=== PATIENT | female | born 1950 | race Caucasian/White ===

== ENCOUNTER → 2018-11-07 | Outpatient (CLI) | payer MEDICARE, OTHER ==
[2018-11-07 07:17] LABS: ABSOLUTE EOSINOPHILS 0.2 thou/uL (0.0-0.7); ABSOLUTE LYMPHOCYTES 2.9 thou/uL (0.8-5.3); ABSOLUTE MONOCYTES 0.5 thou/uL (0.0-1.2); BASOPHILS 0.5 %; EOSINOPHILS 2.6 %; HEMOGLOBIN 13.1 gm/dL (12.0-15.0); LYMPHOCYTES 43.3 %; MCH 28.3 pg (26.0-34.0); MCHC 32.7 g/dL (28.0-37.0); MCV 86.6 fL (80.0-100.0); MPV 9.1 fl. (7.2-11.1); NUCLEATED RBCS 0 /100WBC; PLATELET COUNT* 326 thou/uL (150-400); POLYS 45.6 %; RBC 4.62 mil/uL (4.20-5.00); RDW-CV 14.2 % (10.5-14.5); WBC 6.6 thou/uL (4.0-11.0)
[2018-11-07 07:32] LABS: ALBUMIN 3.6 g/dL (3.4-5.0); CALCIUM 9.3 mg/dL (8.5-10.1); CREATININE 0.9 mg/dL (0.6-1.3); POTASSIUM 4.7 mmol/L (3.5-5.1); TOTAL BILIRUBIN 0.2 mg/dL (<0.1-1.0); TOTAL PROTEIN 7.2 g/dL (6.4-8.2)
[2018-11-07 08:21] LABS: ESR (SEDRATE) 15 mm/hr (0-30)
== END ==
LOC: M.CT 10-31 14:35
PROVIDERS: Psychiatry & Neurology Neuromuscular Medicine
DX: M47.812 Spondylosis without myelopathy or radiculopathy, cervical region (principal); M48.02 Spinal stenosis, cervical region; R42 Dizziness and giddiness; R41.3 Other amnesia

== ENCOUNTER 2018-12-03 22:24 | Emergency (ER) | payer MEDICARE, OTHER ==
[~2018-12-03] VITALS: Ht 165.1 cm; Wt 81.7 kg
[2018-12-03 22:52] LABS: ABSOLUTE EOSINOPHILS 0.2 thou/uL (0.0-0.7); ABSOLUTE MONOCYTES 0.6 thou/uL (0.0-1.2); ABSOLUTE NEUTROPHILS 3.4 thou/uL (1.6-8.1); BASOPHILS 0.5 %; EOSINOPHILS 2.2 %; HEMATOCRIT 37.7 % (37.0-47.0); HEMOGLOBIN 12.4 gm/dL (12.0-15.0); LYMPHOCYTES 41.6 %; MCH 28.4 pg (26.0-34.0); MCV 86.2 fL (80.0-100.0); MONOCYTES 7.9 %; MPV 9.2 fl. (7.2-11.1); NUCLEATED RBCS 0 /100WBC; PLATELET COUNT* 260 thou/uL (150-400); POLYS 47.8 %; RBC 4.37 mil/uL (4.20-5.00); RDW-CV 13.7 % (10.5-14.5); WBC 7.2 thou/uL (4.0-11.0)
[2018-12-03 23:02] LABS: ANION GAP 14 mmol/L (7-16); BUN 16 mg/dL (7-18); CALCIUM 9.4 mg/dL (8.5-10.1); CHLORIDE 107 mmol/L (98-107); CO2 23 mmol/L (21-32); CREATININE 1.1 mg/dL (0.6-1.3); GLUCOSE 132 mg/dL (70-99); POTASSIUM 4.6 mmol/L (3.5-5.1); SODIUM 144 mmol/L (136-145)
[2018-12-03 23:06] LABS: PROTIME 9.8 Seconds (9.20-11.50)
[2018-12-03 23:16] LABS: ALBUMIN 3.5 g/dL (3.4-5.0); ALKALINE PHOSPHATASE 89 U/L (46-116); CK-MB MASS 0.5 ng/mL (<0.5-3.6); LIPASE 78 U/L (73-393); MAGNESIUM 1.2 mg/dL (1.8-2.4); NT-PRO BRAIN NAT PEPTIDE 48 pg/mL (<300); SGOT 13 U/L (15-37); SGPT 16 U/L (30-65); TOTAL BILIRUBIN 0.2 mg/dL (<0.1-1.0); TOTAL PROTEIN 6.8 g/dL (6.4-8.2); TROPONIN-I LEVEL <0.06 ng/mL (<0.06)
[2018-12-04 01:07] VITALS: BP 122/54
--- NOTE | 2018-12-05 10:50 | EKG ---
[place] [address] ELECTROCARDIOGRAM REPORT Name: CARLIN BENTON [id number] Admission: 12/03/18 Attend Phys: Discharge: 12/04/18 Date of : 48 Report #: [id number] THIS REPORT FOR: //name// [facility] ED Test Date: 2018-12-03 Test Time: 22:33:22 Pat Name: CARLIN BENTON Department: Room: Gender: F [employer]: : 1950 Requested By: Paolo Beltran Order Number: [id number] MD: Bhavin Egan Measurements Intervals [place] Rate: 70 P: -14 [place]: 170 QRS: -30 QRSD: 89 T: 3 QT: 375 QTc: 405 Interpretive Statements Sinus rhythm Inferior infarct, old Consider anterior infarct No previous ECG available for comparison Electronically Signed On 12-05-2018 10:50:05 CDT by Bhavin Egan [email or web address] <ELECTRONICALLY SIGNED> By: Bhavin Egan MD, [facility] 12/05/18 1050 [id number] [id number] Bhavin Egan MD, FACC /EPI
== END 2018-12-04 01:15 | disposition home or self-care (01) ==
LOC: M.ERS 22:24
PROVIDERS: Family Medicine
DX: M79.602 Pain in left arm (principal); M19.90 Unspecified osteoarthritis, unspecified site; E11.9 Type 2 diabetes mellitus without complications; M54.9 Dorsalgia, unspecified; G89.29 Other chronic pain; E78.00 Pure hypercholesterolemia, unspecified; I10 Essential (primary) hypertension; Z88.8 Allergy status to other drugs, medicaments and biological substances

== ENCOUNTER 2019-07-25 16:22 | Emergency (ER) | payer MEDICARE, OTHER ==
[~2019-07-25] VITALS: Ht 165.1 cm; Wt 72.6 kg
[2019-07-25] MEDS ORDERED: TOPROL XL100 MG PO (16:37)
[2019-07-25] MEDS ORDERED: GLUCOPHAGE1000 MG PO (16:37)
[2019-07-25] MEDS ORDERED: PERCOCET 10-321 EAC1 PO (16:37)
[2019-07-25 16:47] LABS: ABSOLUTE EOSINOPHILS 0.1 thou/uL (0.0-0.7); ABSOLUTE LYMPHOCYTES 2.6 thou/uL (0.8-5.3); ABSOLUTE MONOCYTES 0.5 thou/uL (0.0-1.2); ABSOLUTE NEUTROPHILS 2.9 thou/uL (1.6-8.1); BASOPHILS 0.5 %; EOSINOPHILS 2.2 %; HEMOGLOBIN 12.3 gm/dL (12.0-15.0); LYMPHOCYTES 42.1 %; MCH 28.8 pg (26.0-34.0); MCHC 33.4 g/dL (28.0-37.0); MCV 86.2 fL (80.0-100.0); MONOCYTES 8.3 %; MPV 9.3 fl. (7.2-11.1); NUCLEATED RBCS 0 /100WBC; PLATELET COUNT* 268 thou/uL (150-400); POLYS 46.9 %; RBC 4.29 mil/uL (4.20-5.00); RDW-CV 13.7 % (10.5-14.5); WBC 6.3 thou/uL (4.0-11.0)
[2019-07-25 16:54] LABS: POTASSIUM 4.1 mmol/L (3.5-5.1)
[2019-07-25 16:56] LABS: APTT 25.5 Seconds (25.0-31.3); PROTIME 10.2 Seconds (9.20-11.50)
[2019-07-25 17:08] LABS: ALBUMIN 3.6 g/dL (3.4-5.0); CK-MB MASS 0.7 ng/mL (<0.5-3.6); MAGNESIUM 1.3 mg/dL (1.8-2.4); TOTAL BILIRUBIN 0.3 mg/dL (<0.1-1.0); TOTAL PROTEIN 6.7 g/dL (6.4-8.2)
[2019-07-25 17:58] VITALS: BP 110/62
--- NOTE | 2019-07-26 10:43 | EKG ---
[place] [address] ELECTROCARDIOGRAM REPORT Name: CARLIN BENTON Room: [facility]#: [id number] Admission: 07/25/19 Attend Phys: Discharge: 07/25/19 Date of : 48 Date of Service: 07/25/19 1626 Report #: [id number] THIS REPORT FOR: //name// [facility] ED Test Date: 2019-07-25 Test Time: 16:26:15 Pat Name: CARLIN BENTON Department: Room: Gender: F [employer] Artist: : 1950 Requested By: Paolo Beltran Order Number: [id number] MD: Bhavin Egan Measurements Intervals [place] Rate: 64 P: -3 [place]: 185 QRS: -28 QRSD: 116 T: 4 QT: 381 QTc: 393 Interpretive Statements Sinus rhythm Nonspecific intraventricular conduction delay Probable anterior infarct, age indeterminate Compared to ECG 12/03/2018 22:33:22 Intraventricular conduction delay now present Myocardial infarct finding still present Electronically Signed On 07-26-2019 10:42:48 DENTURE FINISHER by Bhavin Egan [email or web address] <ELECTRONICALLY SIGNED> By: Bhavin Egan MD, FAC 07/26/19 1042 1626 1626 Bhavin Egan MD, [facility] /EPI
== END 2019-07-25 18:00 | disposition home or self-care (01) ==
LOC: M.ERS 16:22
PROVIDERS: Family Medicine
DX: R00.2 Palpitations (principal); M19.90 Unspecified osteoarthritis, unspecified site; E11.9 Type 2 diabetes mellitus without complications; Z90.710 Acquired absence of both cervix and uterus; E78.00 Pure hypercholesterolemia, unspecified; I10 Essential (primary) hypertension; G89.29 Other chronic pain; Z88.8 Allergy status to other drugs, medicaments and biological substances

== ENCOUNTER → 2020-03-26 | Outpatient (CLI) | payer MEDICARE, OTHER ==
[~2020-03-26] MED LIST: GLUCOPHAGE1000 MG PO; PERCOCET 10-321 EAC1 PO; TOPROL XL100 MG PO
--- NOTE | 2020-03-29 15:07 | PATH ---
[facility] [address] [place] [address] PATHOLOGY RPT PROCEDURE Name: LYNNE PAZ Room: [facility] CHANCE Jacobson#: [id number] Admission: 03/26/20 Date of : 48 Discharge: Report #: [id number] Path Case #: [id number] [facility] Accession Number: [id number] . 01 Material submitted: . breast - RIGHT BREAST CLACIFICATIONS. Modifiers: right . 02 Diagnosis: Right breast calcifications: - Benign breast tissue with sclerosing adenosis, duct ectasia and abundant luminal calcifications, negative for atypia. See comment. (PAWEL:ayala; 03/29/2020) QMS 03/29/2020 1028 Local . 02 Comment: Reviewed with Dr. Ramy Mendoza, who agrees with the diagnosis. (PAWEL:ayala; 03/29/2020) . 02 Electronically signed: . Lion Rosales MD, Pathologist NPI- [id number] . 01 Gross description: . The specimen is received in formalin, labeled "Lynne Paz, right breast calcifications". Received are multiple needle cores of fibrofatty tissue measuring 2.8 x 2.0 x 0.4 cm in aggregate dimensions. Also received within the specimen container is a plastic cassette containing multiple needle cores of fibrofatty tissue measuring 2.2 x 2.0 x 0.6 cm in aggregate dimensions. The suspect tissue is transferred to cassette A1, with the remainder of the specimen submitted in cassettes A2 and A3. The cold ischemic time is 5 minutes. The total formalin fixation time is 30 hours and 20 minutes. (CAA; 03/27/2020) QAC/QAC 03/29/2020 1027 Local . 02 Pathologist provided ICD-10: N60.21, N60.41 . 02 CPT . 632592 Specimen Comment: A courtesy copy of this report has been sent to [phone] Specimen Comment: [id number], Specimen Comment: Report sent to ,DR CAAL / DR ANDRADE Performed at: [address] [facility], [place], [place] [id number] MD Yao Musa MD Phone: [phone] [place] [address] PATHOLOGY RPT PROCEDURE Name: LYNNE PAZ PAKO [facility] [id number] Admission: 03/26/20 Date of : 48 Discharge: Report #: [id number] Path Case #: [id number] Performed at: 02 [facility] [address], [place], [place] [id number] MD Lion Rosales MD Phone: [phone]
== END | disposition home or self-care (01) ==
LOC: M.RAD 14:00
PROVIDERS: ATTEND Family Medicine
DX: R92.1 Mammographic calcification found on diagnostic imaging of breast (principal)